=== PATIENT | male | born 1990 | race Caucasian/White ===

== ENCOUNTER 2024-02-17 17:18 | Emergency (ER) | payer OTHER ==
[~2024-02-17] VITALS: Ht 175.2 cm; Wt 130.4 kg
[2024-02-17] MEDS ORDERED: AMOXICILLIN 500 MG CAP PO ONE (17:50)
[2024-02-17] MEDS ORDERED: AMOXICILLIN500 M2 PO (17:54)
[2024-02-17] MEDS ORDERED: TRAMADOL HCL50 MG PO (17:55)
== END 2024-02-17 18:26 | disposition home or self-care (01) ==
LOC: ED 17:18
DX: K02.9 Dental caries, unspecified (principal)